=== PATIENT | female | born 1950 | race Native Hawaiian/Other Pacific Islander ===

== ENCOUNTER 2018-12-21 12:24 | Outpatient (CLI) | payer BC | END 2018-12-21 22:12 | disposition home or self-care (01) | LOC: RAD 12:24 | DX: M25.561 Pain in right knee (principal) ==

== ENCOUNTER 2019-04-06 09:34 | Outpatient (CLI) | payer BC | END 2019-04-06 19:31 | disposition home or self-care (01) | LOC: RAD 09:34 | DX: Z01.818 Encounter for other preprocedural examination (principal) ==

== ENCOUNTER 2019-05-03 13:19 | Outpatient (CLI) | payer BC | END 2019-05-03 19:54 | disposition home or self-care (01) | LOC: RAD 13:19 | DX: M25.561 Pain in right knee (principal) ==

== ENCOUNTER 2020-11-27 10:44 | Outpatient (CLI) | payer BC | END 2020-11-27 21:55 | disposition home or self-care (01) | LOC: RAD 10:44 | PROVIDERS: ATTEND Physician Assistant | DX: M25.511 Pain in right shoulder (principal) ==

== ENCOUNTER 2022-04-01 10:48 | Outpatient (CLI) | payer BC | END 2022-04-01 18:58 | disposition home or self-care (01) | LOC: RAD 10:48 | PROVIDERS: ATTEND Physician Assistant | DX: M25.511 Pain in right shoulder (principal) ==